=== PATIENT | female | born 2000 | race African-American/Black ===

== ENCOUNTER 2021-08-17 04:50 | Emergency (ER) | payer OTHER ==
[~2021-08-17] VITALS: Ht 165.1 cm; Wt 81.8 kg
[2021-08-17] MEDS ORDERED: SING10TA32 PO (05:00)
[2021-08-17] MEDS ORDERED: ZOLO100T PO (05:00)
[2021-08-17] MEDS ORDERED: CETI-36 PO (05:00)
[2021-08-17] MEDS ORDERED: ALBU8.5H INH (05:00)
[2021-08-17] MEDS ORDERED: ALBUTEROL SULFATE 2.5 MG/0.5 ML INH NEB SOLN NEB ONE (05:10)
[2021-08-17 06:15] LABS: BASO # 0.1 10^3/uL (0.0-0.2); BASO % 0.9 % (0.0-1.0); EOS # 1.1 10^3/uL (0.0-0.5); EOS % 9.5 % (0.0-3.0); HEMATOCRIT 42.2 % (36.0-47.0); HEMOGLOBIN 14.4 g/dl (12.0-15.5); LYMPH # 2.3 10^3/uL (1.5-5.0); LYMPH % 20.3 % (24.0-44.0); MEAN CORPUSCULAR HEMOGLOBIN 31.6 pg (27.0-33.0); MEAN CORPUSCULAR HGB CONC 34.1 g/dl (32.0-36.5); MEAN CORPUSCULAR VOLUME 92.7 fl (80.0-96.0); MONO # 0.9 10^3/uL (0.0-0.8); MONO % 7.7 % (2.0-8.0); NEUTROPHILS # 6.9 10^3/uL (1.5-8.5); NEUTROPHILS % 61.3 % (36.0-66.0); PLATELET COUNT, AUTOMATED 291 10^3/uL (150-450); RED BLOOD COUNT 4.55 10^6/uL (4.00-5.40); WHITE BLOOD COUNT 11.3 10^3/uL (4.0-10.0)
--- NOTE | 2021-08-17 07:02 | REPVR ---
PROCEDURE INFORMATION: Exam: XR Chest Exam date and time: 08/17/2021 6:22 AM Age: 20 years old Clinical indication: Other: Cough with productive sputum, ? pneumonia TECHNIQUE: Imaging protocol: XR of the chest. Views: 1 view. COMPARISON: No relevant prior studies available. FINDINGS: Lungs: Unremarkable. No consolidation. Pleural spaces: Unremarkable. No pleural effusion. No pneumothorax. Heart/Mediastinum: Unremarkable. No cardiomegaly. Bones/joints: Unremarkable. IMPRESSION: No acute findings. Electronically signed by: Osorio Hernandez On 08/17/2021 07:01:09 AM
[2021-08-17] MEDS ORDERED: ALBUTEROL 90 MCG/ACT 8GM HFA INHALER INH ONE (07:15)
--- OUTSIDE RECORDS SUMMARY | 2021-08-17 07:30 | CCD ---
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 Name Role Phone Sonia MCDOWELL MD Unavailable Unavailable Sonia MCDOWELL MD Unavailable Unavailable Sonia MCDOWELL MD Unavailable Unavailable Sonia MCDOWELL MD Unavailable Unavailable Sonia MCDOWELL MD Unavailable Unavailable Sonia MCDOWELL MD Unavailable Unavailable Sonia MCDOWELL MD Unavailable Unavailable Sonia MCDOWELL MD Unavailable Unavailable Sonia MCDOWELL MD Unavailable Unavailable Sonia MCDOWELL MD Unavailable Unavailable Sonia MCDOWELL MD Unavailable Unavailable Sonia MCDOWELL MD Unavailable Unavailable Sonia MCDOWELL MD Unavailable Unavailable Sonia MCDOWELL MD Unavailable Unavailable Sonia MCDOWELL MD Unavailable Unavailable Sonia MCDOWELL MD Unavailable Unavailable Sonia MCDOWELL MD Unavailable Unavailable Sonia MCDOWELL MD Unavailable Unavailable Sonia MCDOWELL MD Unavailable Unavailable Sonia MCDOWELL MD Unavailable Unavailable Sonia MCDOWELL MD Unavailable Unavailable Sonia MCDOWELL MD Unavailable Unavailable Sonia MCDOWELL MD Unavailable Unavailable Sonia MCDOWELL MD Unavailable Unavailable Ish Carbajal MD Unavailable Unavailable Ish Carbajal MD Unavailable Unavailable Ish Carbajal MD Unavailable Unavailable Ish Carbajal MD Unavailable Unavailable Ish Carbajal MD Unavailable Unavailable Ish Carbajal MD Unavailable Unavailable TURRIN, JORDAN Unavailable Unavailable TURRIN, JORDAN Unavailable Unavailable TURRIN, JORDAN Unavailable Unavailable TURRIN, JORDAN Unavailable Unavailable Thacker, L Verona SCRAPER TENDER Unavailable Unavailable Thacker, L Verona SCRAPER TENDER Unavailable Unavailable Thacker, L Verona SCRAPER TENDER Unavailable Unavailable Thacker, L Verona SCRAPER TENDER Unavailable Unavailable Thacker, L Verona SCRAPER TENDER Unavailable Unavailable Thacker, L Verona SCRAPER TENDER Unavailable Unavailable Thacker, L Verona SCRAPER TENDER Unavailable Unavailable Thacker, L Verona SCRAPER TENDER Unavailable Unavailable Thacker, L Verona SCRAPER TENDER Unavailable Unavailable Thacker, L Verona SCRAPER TENDER Unavailable Unavailable Thacker, L Verona SCRAPER TENDER Unavailable Unavailable Thacker, L Verona SCRAPER TENDER Unavailable Unavailable Thacker, L Verona SCRAPER TENDER Unavailable Unavailable Thacker, L Verona SCRAPER TENDER Unavailable Unavailable Thacker, L Verona SCRAPER TENDER Unavailable Unavailable Thacker, L Verona SCRAPER TENDER Unavailable Unavailable Thacker, L Verona SCRAPER TENDER Unavailable Unavailable Thacker, L Verona SCRAPER TENDER Unavailable Unavailable Thacker, L Verona SCRAPER TENDER Unavailable Unavailable Thacker, L Verona SCRAPER TENDER Unavailable Unavailable Thacker, L Verona SCRAPER TENDER Unavailable Unavailable Thacker, L Verona SCRAPER TENDER Unavailable Unavailable Thacker, L Verona SCRAPER TENDER Unavailable Unavailable Thacker, L Verona SCRAPER TENDER Unavailable Unavailable Thacker, L Verona SCRAPER TENDER Unavailable Unavailable Thacker, L Verona SCRAPER TENDER Unavailable Unavailable Thacker, L Verona SCRAPER TENDER Unavailable Unavailable Thacker, L Verona SCRAPER TENDER Unavailable Unavailable Thacker, L Verona SCRAPER TENDER Unavailable Unavailable Thacker, L Verona SCRAPER TENDER Unavailable Unavailable Thacker, L Verona SCRAPER TENDER Unavailable Unavailable Thacker, L Verona SCRAPER TENDER Unavailable Unavailable Thacker, L Verona SCRAPER TENDER Unavailable Unavailable Thacker, L Verona SCRAPER TENDER Unavailable Unavailable Thacker, L Verona SCRAPER TENDER Unavailable Unavailable Thacker, L Verona SCRAPER TENDER Unavailable Unavailable Thacker, L Verona SCRAPER TENDER Unavailable Unavailable Thacker, L Verona SCRAPER TENDER Unavailable Unavailable Thacker, L Verona SCRAPER TENDER Unavailable Unavailable Thacker, L Verona SCRAPER TENDER Unavailable Unavailable Thacker, L Verona SCRAPER TENDER Unavailable Unavailable Thacker, L Verona SCRAPER TENDER Unavailable Unavailable Thacker, L Verona SCRAPER TENDER Unavailable Unavailable Thacker, L Verona SCRAPER TENDER Unavailable Unavailable Thacker, L Verona SCRAPER TENDER Unavailable Unavailable Re-disclosure Warning The records that you are about to access may contain information from federally-assisted alcohol or drug abuse programs. If such information is present, then the following federally mandated warning applies: This information has been disclosed to you from records protected by federal confidentiality rules (42 CFR part 2). The federal rules prohibit you from making any further disclosure of this information unless further disclosure is expressly permitted by the written consent of the person to whom it pertains or as otherwise permitted by 42 CFR part 2. A general authorization for the release of medical or other information is NOT sufficient for this purpose. The Federal rules restrict any use of the information to criminally investigate or prosecute any alcohol or drug abuse patient.The records that you are about to access may contain highly sensitive health information, the redisclosure of which is protected by Article 27-F of the [facility] Public Health law. If you continue you may have access to information: Regarding HIV / AIDS; Provided by facilities licensed or operated by the [facility] Office of Mental Health; or Provided by the [facility] Office for People With Developmental Disabilities. If such information is present, then the following [facility] mandated warning applies: This information has been disclosed to you from confidential records which are protected by state law. State law prohibits you from making any further disclosure of this information without the specific written consent of the person to whom it pertains, or as otherwise permitted by law. Any unauthorized further disclosure in violation of state law may result in a fine or detention sentence or both. A general authorization for the release of medical or other information is NOT sufficient authorization for further disc losure. Encounters Encounter Providers Location Date Indications Data Source(s ) Outpatient Attender: MIKEL MCDOWELL MD 08/03 08:55:14 AM EST - 08/03/2021 10:20:26 AM EST [facility] ([facility] ) Emergency Attender: Ish Carbajal MDConsultant: Verona Thacker [facility] 07/07/2021 08:07:00 AM EDT - 07/07/2021 09:03:00 AM EDT [facility] Patient discharged. Outpatient Attender: MIKEL MCDOWELL MD 03/21 09:35:13 AM EDT - 03/21/2021 10:01:17 AM EDT [facility] ([facility] ) Outpatient 03/20/2021 02:00:29 PM EDT [facility] ([facility]) Emergency Attender: JORDAN HOUSEConsultant: Verona lindsay [facility] 12/04/2020 11:46:00 AM EST - 12/04/2020 01:26:00 PM [facility] Patient discharged. Immunizations Vaccine Date Status Description Data Source(s) COVID-19 VACCINE Moderna 07/27/2021 12:00:00 AM EDT completed [facility] Vaccine Series Complete: YESThis Data wa s Submitted to [facility] Via [facility]. COVID-19 VACCINE Moderna 06/29/2021 12:00:00 AM EDT completed [facility] Vaccine Series Complete: NOThis Data was Submitted to [facility] Via [facility]. Medications No Information Insurance Providers Payer name Policy type / Coverage type Policy ID Covered constitution party ID Covered constitution party's relationship to garcía Policy García Plan Information / [id number] Spouse 01 [id number] IRA [facility] HUMANA [id number] [facility] HUMANA - O/P [id number] 01 000 IRA [facility] HUMANA - O/P [id number] 01 [id number] Problems, Conditions, and Diagnoses Code Display Name Description Problem Type Effective Dates Data Source(s) Y9[address] or not applicable Unspecified place or not applicable Diagnosis 07/07/2021 08:07:00 AM EDT [facility] [id number] Exposure to other specified factors, ini tial encounter Exposure to other specified factors, initial encounter Diagnosis 07/07/2021 08:07:00 AM EDT [facility] [id number] Unspecified asthma, uncomplicated Unspecified as thma, uncomplicated Diagnosis 07/07/2021 08:07:00 AM EDT [facility] 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 R202 Paresthesia of skin Paresthesia of skin Diagnosis 0 12/04/2020 11:46:00 AM EST [facility] Surgeries/Procedures No Information Results ID Date Data Source [id number] 08/03/2021 09:00:00 AM EST [facility] Name Value Range Interpretation Code Description Data Vangie rce(s) Supporting Document(s) SARS-CoV-2 RNA Resp Ql JOAQUÍN+probe NOT DETECTED [facility] This lab was ordered by JOHNNY campos and reported by JOHNNY Raygoza. ID Date Data Source [id number] 07/07/2021 08:07:00 AM EDT [facility] 1 OrderSheet [facility] Emergency Department [address] [place] [address] Phone #: [phone]- [phone] 07/07/2021 07:18 Patient: MARGARET MOONEY Sex: F : 2000 Age: 20yWEIGHT:81.6 kg (S) HEIGHT:65 inches (S) BMI:30.0ALLERGIES: NoneCHIEF COMPLAINT: neck painDIAGNOSIS: Torticollis, Muscle strainLAB ORDERSOrder Description Priority Entered Acknowledged InitialedDIAGNOSTIC STUDY ORDERSOrder Description Priority Entered Acknowledged InitialedMEDICATION/IV/DRIP/FLUID ORDERSOrder Description Priority Entered Acknowledged InitialedValium PO 5 mg 08:08 07/07/2021 08:40 Solomon Hung Jack ; Joanna BOLIVARGENERAL ORDERSOrder Description Priority Entered Acknowledged Initialed[Electronically signed by Ish Carbajal (09:27 07/07/2021)][Electronically signed by Joanna Hung RN (12:13 07/07/2021)][Electronically locked by Joanna Hung RN (12:13 07/07/2021)] Name Value Range Interpretation Code Description Data Vangie rce(s) Supporting Document(s) ID Date Data Source [id number] 07/07/2021 08:07:00 AM EDT [facility] 1 Medication Reconciliation Report [facility] Emergency Department [address] [place] [address] Phone #: [phone] 07/07/2021 07:18 Patient: MARGARET MOONEY Sex: F : 2000 Age: 20yWeight: 81.6 kgHeight/Length: 65 in.BMI: 30.0ALLERGIES: NoneThe patient's Home Medications are listed below:CONTINUE TAKING THE FOLLOWING MEDICATIONS: Albuterol Sulfate HFA Inhalation Singulair OralThe source(s) of the original Home Medication information:patientThe following Medications were given to the patient in the Emergency Department:Valium [PO] PO 5 mg, administered: 08:35 07/07/2021The following Medications were prescribed to the patient:Flexeril 10 mg: take 1 orally every 8 hours for 3 days as needed for muscle spasm. Dispense ten (10). Norefills. -- Ish Carbajal Name Value Range Interpretation Code Description Data Vangie e(s) Supporting Document(s) ID Date Data Source [id number] 07/07/2021 08:07:00 AM EDT [facility] 1 Medication Administration Record [facility] [address] [place] [address] Phone #: ext- [phone] 07/07/2021 07:18 Patient: MARGARET MOONEY Sex: F : 2000 Age: 20yWeight: 81.6 kgHeight/Length: 65 inBMI: 30ALLERGIES: None Date/Time Medication Administered Medication OrderedGiven VALIUM [PO] (DIAZEPAM) Valium PO 5 mg08:35 07/07/2021 Dose: 5 mg Joanna Rachel RN Name Value Range Interpretation Code Description Data Vangie rce(s) Supporting Document(s) ID Date Data Source [id number] 07/07/2021 08:07:00 AM EDT [facility] 1 General Instructions [facility] Department [address] [place] [address] Phone #: ext- [phone] 07/07/2021 07:18 Patient: MARGARET MOONEY Sex: F : 2000 Age: 20yMuscle strain of the left trapezius at the shoulder.Left-sided spasmodic torticollisINSTRUCTIONSWarnings: SEDATIVE MEDICATION: You were given sedative medication during your visit. Do not driveor operate dangerous machinery.GENERAL WARNINGS: Return or contact your physician immediately if your condition worsens orchanges unexpectedly, if not improving as expected, or if other problems arise.Your Current Medications: Your current home medications have been reviewed.CONTINUE TAKING THE FOLLOWING MEDICATIONS:Albuterol Sulfate HFA Inhalation.Singulair Oral.Prescription Medications:Flexeril 10 mg: take 1 orally every 8 hours for 3 days as needed for muscle spasm. Dispense ten (10). Norefills.Understanding of the discharge instructions verbalized by patient.Follow-up with: [facility] [place], , , [address], , [place], [address] Follow up in three days if not better. Call for an appointment. ADDITIONAL INFORMATIONNeck Pain 2 General Instructions [facility] Emergency Department [address] [place] [address] Phone #: ext- [phone] 07/07/2021 07:18 Patient: MARGARET MOONEY Sex: F : 2000 Age: 20yNeck pain has several possible causes when there is no injury: You can get a minor ligament sprain or muscle strain from a sudden minor neck movement. Sleeping with your neck in an awkward position can also cause this. Some people respond to emotional stress by tensing the muscles of their neck, shoulders, and upper back. Chronic spasm in these muscles can cause neck pain and sometimes headaches. Gradual wear and tear of the joints in the spine can cause degenerative arthritis. This can be a source of occasional or chronic neck pain. The spinal disks may bulge and put pressure on a nearby spinal nerve. This can happen as a natural result of aging or repeated small injuries to the neck. The spinal disks are the cushions between each spinal bone. This causes tingling, pain, or numbness that spreads from the neck to the shoulder, arm, or hand on one side.Acute neck pain usually gets better in 1 to 2 weeks. Neck pain related to disk disease, arthritis in thespinal joints, or spinal stenosis can become chronic and last for months or years. Spinal stenosis isnarrowing of the spinal canal.X-rays are usually not ordered for the initial evaluation of neck pain. But X-rays may be done if youhad a forceful physical injury, such as a car accident or fall. If pain continues and doesn't respond tomedical treatment, X-rays and other tests may be done at a later time.Home care Rest and relax the muscles. Use a comfortable pillow that supports the head. It should also help keep the spine in a neutral position. The position of the head should not be tilted forward or backward. A rolled up towel may help for a custom fit. 3 General Instructions [facility] Emergency Department [address] [place] [address] Phone #: ext- [phone] 07/07/2021 07:18 [id number] Sex[facility] : 2000 Age: 20y A soft cervical collar can help pain, especially pain with head movement. Your doctor can tell you if this is appropriate for your condition. Some people find relief with heat. Heat can be applied with either a warm shower or bath or a moist towel heated in the microwave and massage. Others prefer cold packs. You can make an ice pack by filling a plastic bag that seals at the top with ice cubes or crushed ice and then wrapping it with a thin towel. Try both and use the method that feels best for 15 to 20 minutes, several times a day. Whether using ice or heat, be careful that you don't injure your skin. Never put ice directly on the skin. Always wrap the ice in a towel or other type of cloth. This is very important, especially in people with poor skin sensations. Try to reduce your stress level. Emotional stress can lead to neck muscle tension and get in the way of or delay the healing process. You may use uqgm-hii-mgxqufh pain medicine to control pain, unless another medicine was prescribed. If you have chronic liver or kidney disease or ever had a stomach ulcer or digestive bleeding, talk with your healthcare provider before using these medicines.Follow-up careFollow up with your healthcare provider if your symptoms don't show signs of improvement after oneweek. Physical therapy or further tests may be needed.If X-rays, CT scans, or MRI scans were taken, you will be told of any new findings that may affectyour care.Call [phone] if you have: Sudden weakness or numbness in one or both arms Neck swelling, difficulty or painful swallowing Trouble breathing Chest painWhen to seek medical adviceCall your healthcare provider right away if any of these occur: Pain becomes worse or spreads into one or both arm Increasing headache 4 General Instructions [facility] Department [address] [place] [address] Phone #: ext- [phone] 07/07/2021 07:18 Patient: MARGARET MOONEY Sex: F : 2000 Age: 20y Fever of 100.4F (38C) or higher, or as directed by your healthcare provider [employer] [address] [place] [address]. All rights reserved. This information is not intended as asubstitute for professional medical care. Always follow your healthcare professional's instructions.Muscle Strain in the ExtremitiesA muscle strain is a stretching and tearing of muscle fibers. This causes pain, especially when youmove that muscle. There may also be some swelling and bruising.Home care Keep the hurt area raised above heart level to reduce pain and swelling. This is especially important during the first 48 hours. Apply an ice pack over the injured area for 15 to 20 minutes every 3 to 6 hours. You should do this for the first 24 to 48 hours. You can make an ice pack by filling a plastic bag that seals at the top with ice cubes and the n wrapping it with a thin towel. Be careful not to injure your skin with the ice treatments. Ice should never be applied directly to skin. Continue the use of ice packs for relief of pain and swelling as needed. After 48 hours, apply heat (warm shower or warm bath) for 15 to 20 minutes several times a day, or alternate ice and heat. You may use kdff-gxb-smnxohl pain medicine to control pain, unless another medicine was prescribed. If you have chronic liver or kidney disease or ever had a stomach ulcer or gastrointestinal bleeding, talk with your healthcare provider before using these medicines. For leg strains: If crutches have been recommended, don't put full weight on the hurt leg until you can do so without pain. You can return to sports when you are able to hop and run on the injured leg without pain.Follow-up careFollow up with your healthcare provider, or as advised.When to seek medical adviceCall your healthcare provider right away if any of these occur: The toes of the injured leg become swollen, cold, blue, numb, or tingly Pain or swelling increases [phone] [employer] [address] [place], [place] [id number]. All rights reserved. This information is not intended as asubstitute for professional medical care. Always follow your healthcare professional's instructions. 5 General Instructions [facility] Department [address] [place] [address] Phone #: ext- [phone] 07/07/2021 07:18 Patient: MARGARET MOONEY Sex: F : 2000 Age: 20yCyclobenzaprine tabletsWhat is this medicine?CYCLOBENZAPRINE (katarina jacobo) is a muscle relaxer. It is used to treat muscle pain,spasms, and stiffness.How should I use this medicine?Take this medicine by mouth with a glass of water. Follow the directions on the prescription label. Ifthis medicine upsets your stomach, take it with food or milk. Take your medicine at regular intervals.Do not take it more often than directed.Talk to your inserter operator regarding the use of this medicine in children. Special care may be needed.What side effects may I notice from receiving this medicine?Side effects that you should report to your doctor or health adult daycare coordinator as soon as possible: allergic reactions like skin rash, itching or hives, swelling of the face, lips, or tongue breathing problems chest pain fast, irregular heartbeat hallucinations seizures unusually weak or tiredSide effects that usually do not require medical attention (report to your doctor or health careprofessional if they continue or are bothersome): headache nausea, vomitingWhat may interact with this medicine?Do not take this medicine with any of the following medications: MAOIs like Carbex, Eldepryl, Marplan, Nardil, and Parnate narcotic medicines for cough 6 General Instructions [facility] Department [address] [place] [address] Phone #: ext- [phone] 07/07/2021 07:18 Patient: MARGARET MOONEY Sex: F : 2000 Age: 20y safinamideThis medicine may also interact with the following medications: alcohol bupropion antihistamines for allergy, cough and cold certain medicines for anxiety or sleep certain medicines for bladder problems like oxybutynin, tolterodine certain medicines for depression like amitriptyline, fluoxetine, sertraline certain medicines for Parkinson's disease like benztropine, trihexyphenidyl certain medicines for seizures like phenobarbital, primidone certain medicines for stomach problems like dicyclomine, hyoscyamine certain medicines for travel sickness like scopolamine general anesthetics like halothane, isoflurane, methoxyflurane, propofol ipratropium local anesthetics like lidocaine, pramoxine, tetracaine medicines that relax muscles for surgery narcotic medicines for pain phenothiazines like chlorpromazine, mesoridazine, prochlorperazine, thioridazine verapamilWhat if I miss a dose?If you miss a dose, take it as soon as you can. If it is almost time for your next dose, take only thatdose. Do not take double or extra doses.Where should I keep my medicine?Keep out of the reach of children.Store at room temperature between 15 and 30 degrees C (59 and 86 degrees F). Keep containertightly closed. Throw away any unused medicine after the expiration date. 7 General Instructions [facility] Department [address] [place] [address] Phone #: ext- [phone] 07/07/2021 07:18 Patient: MARGARET MOONEY Sex: F : 2000 Age: 20yWhat should I tell my health care provider before I take this medicine?They need to know if you have any of these conditions: heart disease, irregular heartbeat, or previous heart attack liver disease thyroid problem an unusual or allergic reaction to cyclobenzaprine, tricyclic antidepressants, lactose, other medicines, foods, dyes, or preservatives or trying to get breast-feedingWhat should I watch for while using this medicine?Tell your doctor or health adult daycare coordinator if your symptoms do not start to get better or if they getworse.You may get drowsy or dizzy. Do not drive, use machinery, or do anything that needs mentalalertness until you know how this medicine affects you. Do not stand or sit up quickly, especially ifyou are an older patient. This reduces the risk of dizzy or fainting spells. Alcohol may interfere withthe effect of this medicine. Avoid alcoholic drinks.If you are taking another medicine that also causes drowsiness, you may have more side effects.Give your health care provider a list of all medicines you use. Your doctor will tell you how muchmedicine to take. Do not take more medicine than directed. Call emergency for help if you haveproblems breathing or unusual sleepiness.Your mouth may get dry. Chewing sugarless gum or sucking hard candy, and drinking plenty of watermay help. Contact your doctor if the problem does not go away or is severe.NOTE:This sheet is a summary. It may not cover all possible information. If you have questions about this medicine, talk to your doctor, pharmacist, orhealth care provider. Copyright 2020 [employer] You have been given the following additional information: Neck Pain Muscle Strain, Extremity Cyclobenzaprine tablets 8 General Instructions [facility] Department [address] [place] [address] Phone #: ext- [phone] 07/07/2021 07:18 Patient: MARGARET MOONEY Sex: F : 2000 Age: 20y(Electronically signed by Ish Carbajal 07/07/2021 09:27) Name Value Range Interpretation Code Description Data Vangie rce(s) Supporting Document(s) ID Date Data Source [id number] 07/07/2021 08:07:00 AM EDT [facility] 1 Clinical Report - Nurses [facility] [address] [place] [address] Phone #: ext- [phone] 07/07/2021 07:18 Patient: MARGARET MOONEY Sex: F : 2000 Age: 20yTRIAGEArrived by private vehicle. Historian: patient. Accompanied by family. ( presents with with c/osudden onset of L neck pain radiating into shoulder that started yesterday afternoon,).Triage time: 07:40 07/07/2021. Acuity: LEVEL 4.Chief Complaint: NECK PAIN and (into L shoulder).Alert. No acute distress.This started yesterday. No history of recent trauma.Treatment BANKRUPTCY LAW SPECIALIST:Applied ice and heat. Took Tylenol and ibuprofen. (biofreeze).SEPSIS SCREEN: SIRS SCREEN NEGATIVE. SEPSIS SCREEN NEGATIVE. No suspected or confirmedsigns of infection present. --07:47 07/07/21 Joanna Hung RN07:40 07/07/21. BP: 146/88. MAP: 107. HR: 122. RR: 19. O2 saturation: 96%. Temp: 100 F. Pain levelnow: 06/06. --07:47 07/07/21 Joanna Hung RN( she got her first covid shot a week ago.). --07:49 07/07/21 Jaonna Hung RN.Weight: 81.6 kg stated. Height/Length: 65 inches Per Patient. BMI: 30. --07:41 07/07/21 Joanna Hung RN.MedicationsAlbuterol Sulfate HFA Inhalation. --07:43 07/07/21 Joanna Hung RN Singulair Oral. --07:43 07/07/21 Joanna Hung RN.AllergiesNone. --07:43 07/07/21 Joanna Hung RN.PROBLEMS:Asthma. --07:43 07/07/21 Joanna Hung RN.Medication/allergy information source: the patient and patient's previous visit record. --07:47 07/07/21Joanna Hung RN.ADDITIONAL SURGERIES:no known surgeries. 2 Clinical Report - Nurses [facility] Department [address] [place] [address] Phone #: ext- [phone] 07/07/2021 07:18 Patient: MARGARET MOONEY Sex: F : 2000 Age: 20y History PAST MEDICAL HX: Uses an intrauterine device. SOCIAL HX: Never smoker. Occasional alcohol use. No drug use. The patient was offered HIV testing but declined and hepatitis C testing but declined. The patient has not traveled outside the [place] Infectious disease exposure: No infectious disease exposure. SELF HARM ASSESSMENT: Self harm assessment was performed. The patient answered "no" to the question(s) "Have you recently felt down, depressed, or hopeless?". ABUSE ASSESSMENT: No report of abuse. NUTRITIONAL RISK ASSESSMENT: The nutritional risk assessment revealed no deficiencies. FUNCTIONAL ASSESSMENT: Functional assessment: no impairments noted. LEARNING NEEDS ASSESSMENT: The learning needs assessment revealed no barriers. FALL RISK ASSESSMENT: Fall risk assessment completed. No risk factors identified. SKIN INTEGRITY ASSESSMENT: Skin integrity risk assessment completed. No skin integrity risk identified. --07:47 07/07/21 Joanna Hung RN. FAMILY HX: No significant family medical history. --08:11 07/07/21 Ish Carbajal.PHYSICAL ASSESSMENTAmbulatory to room.GENERAL / NEURO / PSYCH: Alert. Oriented X 4. Appears in no acute distress.RESPIRATORY: Respirations not labored. Breath sounds within normal limits.CVS: Capillary refill less than 2 seconds.EXTREMITIES: Limited ROM present in the left shoulder and left upper arm. Sensation intact inextremities.BACK: Limited ROM of the neck. No vertebral point tenderness or soft tissue tenderness. --07: Joanna Hung RN.NURSING PROGRESS NOTESReassurance given. Two patient identifiers checked. Bed placed in lowest position. Brakes of bed on.Patient ready for evaluation. --07:47 07/07/21 Joanna Hung RN 08:35 07/07/2021 Valium (diazePAM) PO 5 mg given. Allergies verified and confirmed 5 rights. Information reviewed with patient including reason for taking this medication and sedative warning. Verbalizes understanding. --08:40 07/07/21 Joanna Hung RN.DISPOSITION / DISCHARGE Departure time: 09:03 07/07/2021. --09:55 07/07/21 Joanna Hung RN 3 Clinical Report - Nurses [facility] [address] [place] [address] Phone #: ext- [phone] 07/07/2021 07:18 Patient: MARGARET MOONEY Sex: F : 2000 Age: 20y Condition at departure: stable. No learning barriers present. Discharge instructions provided and reviewed with the patient. Reviewed medication(s) side effects, precautions, dosing and course information. Prescription(s) sent electronically to pharmacy. Reviewed referral to a primary care physician. Patient verbalized understanding. Written instructions provided in Congolese. The patient was discharged by the physician. She was discharged home and accompanied by spouse. She left ambulatory and via private vehicle. Spouse driving. --12:12 07/07/21 Joanna Hung RN 09:00 07/07/21. Pain level now: 05/06. --12:12 07/07/21 Joanna Hung RN.Locked/Released at 07/07/2021 12:13 by Joanna Hung RN Name Value Range Interpretation Code Description Data Vangie rce(s) Supporting Document(s) ID Date Data Source [id number] 07/07/2021 08:07:00 AM EDT [facility] 1 Clinical Report - Physicians/Mid Levels [facility] [address] [place] [address] Phone #: ext- [phone] 07/07/2021 07:18 Patient: MARGARET MOONEY Sex: F : 2000 Age: 20y Time Seen: 07:58 07/07/2021. Arrived- By private vehicle. Historian- patient.HISTORY OF PRESENT ILLNESS Chief Complaint: NECK PAIN shoulder pain. Onset was yesterday and it is still present. It was gradual in onset and has been constant. It is described as being moderate in degree and in the area of the left trapezius and left side of the cervical spine and radiating to the left shoulder. The quality is noted to be sharp and aching. Modifying factors- worsened by neck flexion. No bladder dysfunction, bowel dysfunction, sensory loss or motor loss. Additional history - Started with left sided neck pain and trapezius. Hurts to move and the pain is getting worse. No known injury or repetitive use. Right handed. She is worried about blood clot or pinched nerve. No relief with ibuprofen 800 mg. No painful swallowing or headache. Iona ent denies an injury. No other injury. Similar symptoms previously. None. Recent medical care: Not recently seen/assessed.REVIEW OF SYSTEMSDenies current . No fever, chills, cough or difficulty breathing. No chest pain or pain, skin rash,abdominal pain or difficulty with urination. No urinary frequency, fatigue, fever, difficulty breathing or backpain. No numbness, weakness, extremity swelling or anxiety. The patient has had neck pain. All othersystems reviewed and are negative.PAST HISTORYSee nurses notes. Has not had a prior back injury. Has not had prior back pain. Problems: Asthma. Surgeries: No history of previous surgery. Additional Surgeries: no known surgeries. Medications: Singulair Oral. Albuterol Sulfate HFA Inhalation. Allergies: None. 2 Clinical Report - Physicians/Mid Levels [facility] Department [address] [place] [address] Phone #: ext- [phone] 07/07/2021 07:18 [id number] Sex: F : 2000 Age: 20ySOCIAL HISTORYNever smoker. No alcohol use.FAMILY HISTORYNo significant family medical history.ADDITIONAL NOTESThe nursing notes have been reviewed.PHYSICAL EXAMVital Signs: 07/07/2021 07:40 BP: 146/88. MAP: 107. HR: 122. RR: 19. O2 saturation: 96%. Temp: 100 F.Pain level now: 06/06.Appearance: Alert. No acute distress.HEENT: Normal external inspection.ENT: Pharynx normal.Neck: Pain in the neck upon movement. Muscle spasm of the neck. No vertebral tenderness. No softtissue tenderness, lymphadenopathy or meningeal signs. (pain with lateral rotation of neck).CVS: Normal heart rhythm. Heart sounds normal. Pulses normal.Respiratory: No respiratory distress. Expiratory mild bilateral wheezes present. Chest nontender. Nodecreased air movement.Abdomen: Normal inspection.Back: Normal inspection. No tenderness. Painless ROM.Skin: Skin warm. Normal skin color. Normal skin turgor.Extremities: No lower extremity edema. (Some pain with palpation over left trapezius. No tense swellingto left arm.. Clavicle is nontender).Neuro: Oriented X 3. Mood/affect normal. No motor deficit. No sensory deficit. Reflex exam: lefttriceps 2+, right biceps 2+ and left biceps 2+. (good director digital advertising strength.).PROGRESS AND PROCEDURESCourse of Care: 08:14 07/07/21. Torticollis or musculoskeletal pain. No palpable masses or neurologicaldeficits. Unlikely to be DVT or cervical radiculopathy. Not a smoker or taking oral BCP's. No signs ofswelling. Unlikely to be radicular pain given that the pain only involves the trapezius and lateral deltoid. Patient/family counseled. Disposition: Discharged. Condition: stable.CLINICAL IMPRESSION Muscle strain of the left trapezius at the shoulder. Left-sided spasmodic torticollis 3 Clinical Report - Physicians/Mid [place] [facility] [address] [place] [address] Phone #: [phone]- [phone] 07/07/2021 07:18 Patient: MARGARET MOONEY Sex: F : 2000 Age: 20yINSTRUCTIONS Warnings: SEDATIVE MEDICATION: You were given sedative medication during your visit. Do not drive or operate dangerous machinery. GENERAL WARNINGS: Return or contact your physician immediately if your condition worsens or changes unexpectedly, if not improving as expected, or if other problems arise. Your Current Medications: Your current home medications have been reviewed. CONTINUE TAKING THE FOLLOWING MEDICATIONS: Albuterol Sulfate HFA Inhalation. Singulair Oral. Prescription Medications: Flexeril 10 mg: take 1 orally every 8 hours for 3 days as needed for muscle spasm. Dispense ten (10). No refills. Understanding of the discharge instructions verbalized by patient. [facility] Respective Team [place], , , [address] [facility], , [place], [address] Follow up in three days if not better. Call for an appointment.(Electronically signed by Ish Carbajal 07/07/2021 09:27) Name Value Range Interpretation Code Description Data Vangie rce(s) Supporting Document(s) ID Date Data Source [id number] 12/05/2020 10:41:00 [place] [address] PHONE: [phone] FAX: [phone] Name .................. : JESICA Dumont Acct Number.................. : [id number] ROOM. ................. : TR-03 MR Number ................... : [id number] Stay type ............. : E/R Discharge Date......... ... : 12/04/20 Admit Date ......... : 12/04/20 Admit Phys .................... : HARSH MEDEIROS Date of ....... : 2000 Family Phys ................... : THACKER M Phone .................. : [phone] Age ................................ : 20 Film# .................. .:[id number] Sex ................................. : F Unsigned transcriptions are preliminary reports and do not represent a medical or legal document SPINE LS AP & LAT [id number] COMPLETE:12/04/20 12:35 CHERYL [id number] Reason(s): Lower Extremity Tingling LUMBAR SPINE X-RAY: COMPARISON: None available. FINDINGS: There is no acute fracture, spondylolisthesis or degenerative change. Incomplete disc space at S1-S2. The upper spine is angled to the right. A metallic foreign body is noted in the region of the umbilicus. IMPRESSION: No acute fracture, spondylolisthesis or significant degenerative change. Electronically Reviewed and Signed By Gregorio Vázquez MD , 12/05/20 10:41, AML Transcribe Initials: ROSALINA , Transcribe Date: 12/05/20 02:49, Dictation Date: Copy for: 710 MED REC D ISCHARGED Page 1 of 1 Name Value Range Interpretation Code Description Data Vangie rce(s) Supporting Document(s) ID Date Data Source [id number] 12/04/2020 11:46:00 AM EST [facility] 1 OrderSheet [facility] [address] [place] [address] Phone #: ext- [phone] 12/04/2020 11:35 Patient: MARGARET MOONEY Sex: F : 2000 Age: 20yWEIGHT:74.8 kg (S) HEIGHT:65 inches (S) BMI:27.5ALLERGIES: No Known Drug AllergyCHIEF COMPLAINT: paresthesiaDIAGNOSIS: Paresthesia, Normal ExamLAB ORDERSOrder Description Priority Entered Acknowledged InitialedCBC w Diff STAT 11:56 12/04/2020 11:57 Harsh Hung Riccardo Lisa RN M.D.;CMP STAT 11:56 12/04/2020 11:57 Harsh Hung Riccardo Lisa RN M.D.;TSH STAT 11:56 12/04/2020 11:57 Harsh Hung Riccardo Lisa RN M.D.;HCG Serum Qual STAT 11:56 12/04/2020 11:57 Harsh Hung Riccardo Lisa RN M.D.;Lyme Disease STAT 12:07 12/04/2020 12:58 AnabellAntibodies Jordan House RN, M.D.;DIAGNOSTIC STUDY ORDERSOrder Description Priority Entered Acknowledged InitialedSpine Lumbar AP STAT 11:57 12/04/2020 11:57 AnabellAnd Jordan Harmon RN(Oxygen?(No)) Tamara; Reason for Study: Lower Extremity TinglingMEDICATION/IV/DRIP/FLUID ORDERSOrder Description Priority Entered Acknowledged InitialedGENERAL ORDERSOrder Description Priority Entered Acknowledged InitialedVitals 11:56 12/04/2020 11:57 Harsh Hung Riccardo Lisa RN M.D.; 2 OrderSheet [facility] Department [address] [place] [address] Phone #: ext- [phone] 12/04/2020 11:35 Patient: MARGARET MOONEY Sex: F : 2000 Age: 20yBlood Pressure 11:56 12/04/2020 11:57 Anabell,Jordan Armando RN, M.D.;[Electro nically signed by Joanna Hung RN (13:30 12/04/2020)][Electronically signed by Jordan House M.D. (14:19 12/04/2020)][Electronically locked by Joanna Hung RN (13:30 12/04/2020)] Name Value Range Interpretation Code Description Data Vangie rce(s) Supporting Document(s) ID Date Data Source [id number] 12/04/2020 11:46:00 AM EST [facility] 1 Medication Reconciliation Report [facility] [address] [place] [address] Phone #: ext- [phone] 12/04/2020 11:35 Patient: MARGARET MOONEY Sex: F : 2000 Age: 20yWeight: 74.8 kgHeight/Length: 65 in.BMI: 27.5ALLERGIES: No Known Drug AllergyThe patient's Home Medications are listed below:STOP TAKING THE FOLLOWING MEDICATIONS: Zoloft Oral 50 mg, dailyCONTINUE TAKING THE FOLLOWING MEDICATIONS: Albuterol Sulfate HFA Inhalation Singulair Oral ZyrTEC Allergy Childrens OralThe source(s) of the original Home Medication information:patientThe following Medications were given to the patient in the Emergency Department:None.The following Medications were prescribed to the patient:None. Name Value Range Interpretation Code Description Data [facility] Supporting Document(s) ID Date Data Source [id number] 12/04/2020 11:46:00 AM [facility] 1 Medication Administration Record [facility] [address] [place] [address] Phone #: ext- [phone] 12/04/2020 11:35 Patient: MARGARET MOONEY Sex: F : 2000 Age: 20yWeight: 74.8 kgHeight/Length: 65 inBMI: 27.5ALLERGIES: No Known Drug AllergyDate/Time Medication Administered Medication Ordered Name Value Range Interpretation Code Description Data [facility] Supporting Document(s) ID Date Data Source [id number] 12/04/2020 11:46:00 AM [facility] 1 General Instructions [facility] Department [address] [place] [address] Phone #: ext- [phone] 12/04/2020 11:35 Patient: MARGARET MOONEY Sex: F : 2000 Age: 20yNormal exam upon presentation, while in the ED and at discharge.Paresthesia (lower legs, intermittent).Rule out Zoloft side effect.INSTRUCTIONS Follow a low salt diet and low cholesterol diet. Do not smoke. No alcohol. (RETURN TO ER IF WORSENING OF SYMPTOMS OR ANY NEW NEUROLOGICAL SYMPTOM; STOP THE ZOLOFT AND FOLLOW UP WITH YOUR FAMILY MD IN NEXT WEEK).Warnings: Further evaluation is necessary. It is very important to follow up with a healthcare provider.GENERAL WARNINGS: Return or contact your physician immediately if your condition worsens orchanges unexpectedly, if not improving as expected, or if other problems arise. Specifically return if pain,vomiting, bleeding, breathing difficulty or fever greater than 102 degrees F and not controlled byacetaminophen or ibuprofen.Your Current Medications: Your current home medications have been reviewed.STOP TAKING THE FOLLOWING MEDICATIONS:Zoloft Oral : 50 mg daily.CONTINUE TAKING THE FOLLOWING MEDICATIONS:Albuterol Sulfate HFA Inhalation.Singulair Oral.ZyrTEC Allergy Childrens Oral.Follow-up:Return to the emergency department as needed. Follow up with your healthcare provider in three dayseven if well. Call for an appointment. Reason for referral: evaluation and treatment. Summary of careprovided to patient via paper.Understanding of the discharge instructions verbalized by patient. Expected course of illness, dischargeinstructions, activity level, diet, follow-up appointment and risks and benefits of treatment reviewed withpatient and understanding verbalized. Agrees to plan of care. ADDITIONAL INFORMATIONParaesthesias 2 General Instructions [facility] Department [address] [place] [address] Phone #: ext- [phone] 12/04/2020 11:35 Patient: MARGARET MOONEY Sex: F : 2000 Age: 20yParaesthesia is a burning or prickling sensation that is sometimes felt in the hands, arms, legs or feet.It can also occur in other parts of the body. It can also feel like tingling or numbness, skin crawling, oritching. The feeling is not comfortable, but it is not painful. (The "pins and needles" feeling thathappens when a foot or hand "falls asleep" is a temporary paraesthesia.)Paraesthesias that last or come and go may be caused by medical issues that need to be treated.These include stroke, a bulging disk pressing on a nerve, a trapped nerve, vitamin deficiencies,uncontrolled diabetes, alcohol abuse, or even certain medicines.Tests are often done. These tests may include blood tests, X-ray, CT (computerized tomography)scan, nerve conduction studies (NCS), or a muscle test (electromyography). Depending on the cause,treatment may include physical therapy.Home care Tell your healthcare provider about all medicines you take. This includes prescription and dnbd-daz-ttltgnj medicines, vitamins, and herbs. Ask if any of the medicines may be causing your problems. Don't make any changes to prescription medicines without talking to your healthcare provider first. You may be prescribed medicines to help relieve the tingling feeling or for pain. Take all medicines as directed. A numb hand or foot may be more prone to injury. To help protect it: o Always use oven mitts. o Test water with an unaffected hand or foot. o Use caution when trimming nails. File sharp areas. o Wear shoes that fit well to avoid pressure points, blisters, and ulcers. o Inspect your hands and feet carefully (including the soles of your feet and between your toes) daily. If you see red areas, sores, or other problems, tell your healthcare provider.Follow-up careFollow up with your doctor, or as advised. You may need further testing or evaluation.When to seek medical adviceCall your healthcare provider right away if any of the following occur: 3 General Instructions [facility] Department [address] [place] [address] Phone #: ext- [phone] 12/04/2020 11:35 Patient: MARGARET MOONEY Sex: F : 2000 Age: 20y Numbness or weakness of the face, one arm, or one leg Slurred speech, confusion, trouble speaking, walking, or seeing Severe headache, fainting spell, dizziness, or seizure Ches t, arm, neck, or upper back pain Loss of bladder or bowel control Open wound with redness, swelling, or pus [employer] [address] [place] [address], [place] [address]. All rights reserved. This information is not intended as asubstitute for professional medical care. Always follow your healthcare professional's instructions. You have been given the following additional information: Paraesthesias(Electronically signed by Jordan House M.D. 12/04/2020 14:19) Name Value Range Interpretation Code Description Data Vangie rce(s) Supporting Document(s) ID Date Data Source [id number] 12/04/2020 11:46:00 AM EST [facility] 1 Clinical Report - Nurses [facility] [address] [place] [address] Phone #: ext- [phone] 12/04/2020 11:35 Patient: MARGARET MOONEY Sex: F : 2000 Age: 20yTRIAGEArrived by private vehicle. Historian: patient. Unaccompanied.Triage time: 11:28 12/04/2020. Acuity: LEVEL 3.Chief Complaint: NUMBNESS.Alert. No acute distress.Onset. (5 days ago). ( Pt went skiing 5 days ago and since has experienced some tinlging and numbnessin bilateral feet. Pt believes it is related to taking her Zoloft, not skiing. Pt fell several times while skiing.).Treatment BANKRUPTCY LAW SPECIALIST:None.SEPSIS SCREEN: SIRS SCREEN NEGATIVE: heart rate greater than 90. SEPSIS SCREEN NEGATIVE.No suspected or confirmed signs of infection present. --11:42 12/04/20 Navya Escalera R.N.11:36 12/04/20. BP: 142/94. MAP: 110. HR: 100. RR: 16. O2 saturation: 99% on room air. Temp: 99.1 F(oral). Pain level now: 05/06. --11:42 12/04/20 Navya Escalera R.N.Weight: 74.8 kg stated. Height/Length: 65 inches Per Patient. BMI: 27.5. --11:38 12/04/20 Navya Escalera R.N.MedicationsZoloft Oral 50 mg, daily. --11:41 12/04/20 Navya Escalera R.N. Albuterol Sulfate HFA Inhalation. --11:41 12/04/20 Navya Escalera R.N. Singulair Oral. --11:41 12/04/20 Navya Escalera R.N. ZyrTEC Allergy Childrens Oral. --11:41 12/04/20 Navya Escalera R.N.AllergiesNo Known Drug Allergy. --11:41 12/04/20 Navya Escalera R.N.PROBLEMS:Anxiety Reaction.Asthma. --11:42 12/04/20 Navya Escalera R.N.Medication/allergy information source: the patient. --11:42 12/04/20 Navya Escalera R.N.ADDITIONAL SURGERIES:no known surgeries. 2 Clinical Report - Nurses [facility] Department [address] [place] [address] Phone #: ext- [phone] 12/04/2020 11:35 Patient: MARGARET MOONEY Sex: F : 2000 Age: 20y History PAST MEDICAL HX: Immunizations: up-to-date. Last normal menstrual period- Nov 12. SOCIAL HX: Never smoker. Occasional alcohol use. No drug use. The patient was offered HIV testing but declined. Patient education was provided. The patient was offered hepatitis C testing but declined. Patient education was provided. The patient has not traveled outside the [place] Infectious disease exposure: No infectious disease exposure. (COVID screen negative). Patient is not a known carrier of tuberculosis, hepatitis, HIV, MRSA or VRE. Patient is not a known carrier of CRE. SELF HARM ASSESSMENT: Self harm assessment was performed. The patient answered "no" to the question(s) "Do you have thoughts of harming or killing yourself?", "Do you have a plan for harming or killing yourself?" and "Have you recently had thoughts about harming or killing others?". ABUSE ASSESSMENT: Abuse assessment. The patient had positive responses to the question(s) "Do you feel safe in your home?" (yes). Abuse denied. No suspicion of abuse. No report of abuse. NUTRITIONAL RISK ASSESSMENT: The nutritional risk assessment revealed no deficiencies. FUNCTIONAL ASSESSMENT: Functional assessment: no impairments noted. LEARNING NEEDS ASSESSMENT: The learning needs assessment revealed no barriers. FALL RISK ASSESSMENT: Fall risk assessment completed; fell during skiing. SKIN INTEGRITY ASSESSMENT: Skin integrity risk assessment completed. No skin integrity risk identified. --11:42 12/04/20 Navya Escalera RMadisonN. Interventions Identification band on patient. --11:42 12/04/20 Navya Escalera R.N.PHYSICAL ASSESSMENTAmbulatory to room.GENERAL / NEURO / PSYCH: Alert. Oriented X 4. Appears in no acute distress.HEENT: Pupils equal, round and reactive to light. No facial asymmetry noted. ( neuro checks WNL).Mucous membranes are pink.RESPIRATORY: Respirations not labored. Chest nontender. Breath sounds within normal limits.CVS: Normal sinus rhythm noted. Cardiac rhythm: sinus tachycardia. Capillary refill less than 2 seconds.Pulses within normal limits.GI / : Abdomen soft and nontender and normal bowel sounds.SKIN: Skin intact. Skin is warm and dry. Normal skin turgor. ( R great toe red and tender, due to skiboots). --11:55 12/04/20 Joanna Hung RN.NURSING PROGRESS NOTESMonitoring of patient in place. Patient gowned. Reassurance given. Three patient identifiers checked.Call light placed in reach. Side rails up x 2. Bed placed in lowest position. Brakes of bed on. Patient 3 Clinical Report - Nurses [facility] Emergency Department [address] [place] [address] Phone #: ext- [phone] 12/04/2020 11:35 Patient: MARGARET MOONEY Sex: F : 2000 Age: 20y ready for evaluation- ED physician and PA notified. --11:42 12/04/20 Navya Escalera R.N.DISPOSITION / DISCHARGE Departure time: 13:26 12/04/2020. --13:26 12/04/20 Joanna Hung RN Condition at departure: stable. No learning barriers present. Discharge instructions provided and reviewed with the patient. Reviewed referral to a primary care physician. Patient verbalized understanding. Written instructions provided in Congolese. The patient was discharged by the physician. She was discharged home and unaccompanied at time of discharge. She left ambulatory and via private vehicle. Patient driving. --13:27 12/04/20 Joanna Hung RN 13:20 12/04/20. BP: 153/88. MAP: 109. HR: 95. RR: 16. O2 saturation: 99%. Temp: deferred. Pain level now: 0/10. --13:29 12/04/20 Joanna Hung RN.Locked/Released at 12/04/2020 13:30 by Joanna Hung RN Name Value Range Interpretation Code Description Data Vangie rce(s) Supporting Document(s) ID Date Data Source [id number] 12/04/2020 11:46:00 AM EST [facility] 1 Clinical Report - Physicians/Mid Levels [facility] Emergency Department [address] [place] [address] Phone #: ext- [phone] 12/04/2020 11:35 Patient: MARGARET MOONEY Sex: F : 2000 Age: 20y Time Seen: 11:38 12/04/2020; initial patient contact. Arrived- By private vehicle. Historian- patient. Disposition decision: 13:19 12/04/2020.HISTORY OF PRESENT ILLNESS Chief Complaint: PARESTHESIA. B/L lower anterior legs. This started 5 days ago and is still present. It has been intermittent. The patient has had new onset of numbness of the right leg (mild) and left leg (mild). She has had new onset of tingling of the right leg (mild) and left leg (mild). No impaired speech or swallowing, visual disturbance or recent fall. No difficulty walking. At its maximum deficit described as mild. When seen in the E.D., it was almost gone. No dizziness, altered mental status, seizure or blackouts. Usually is alert and oriented X3 and has normal mobility. (pt went skiing the other day and Sx's started then but no injury; pt believes it's the Zoloft medication which she started 4 weeks ago; otw ROS negative). Similar symptoms previously. None. Recent medical care: Not recently seen/assessed.REVIEW OF SYSTEMSNo fever, headache, head injury, chest pain or difficulty breathing. No cough, sputum production, sorethroat, abdominal pain or nausea. No diarrhea, black stools, difficulty with urination, skin rash or enlargedlymph nodes. No joint pain, vomiting, bloody stools or back pain. All other systems reviewed and arenegative.PAST HISTORYSee nurses notes. Problems: Anxiety Reaction. Asthma. Additional Surgeries: no known surgeries. Medications: ZyrTEC Allergy Childrens Oral. Singulair Oral. Albuterol Sulfate HFA Inhalation. 2 Clinical Report - Physicians/Mid Levels [facility] Emergency Department [address] [place] [address] Phone #: ext- [phone] 12/04/2020 11:35 -- Patient: MARGARET MOONEY Sex: F : 2000 Age: 20y Zoloft Oral 50 mg, daily. Allergies: No Known Drug Allergy.SOCIAL HISTORYNever smoker. Occasional alcohol use. No drug use.ADDITIONAL NOTESThe nursing notes h ave been reviewed with agreement regarding the chief complaint, HPI, ROS, PMH andpatient medications and allergies.PHYSICAL EXAMVital Signs: 12/04/2020 11:36 BP: 142/94. MAP: 110. HR: 100. RR: 16. O2 saturation: 99% on room air.Temp: 99.1 F. Pain level now: 05/06. Have been reviewed. Oxygen saturation normal.Appearance: Alert. No acute distress.Head: Head atraumatic.Eyes: Pupils equal, round and reactive to light.ENT: Normal ENT inspection. Airway intact. Pharynx normal.Neck: Normal inspection. Neck supple.CVS: Normal heart rate and rhythm. Heart sounds normal. Pulses normal.Respiratory: No respiratory distress. Painless inspiration. Breath sounds normal.Abdomen: Soft and nontender. No organomegaly.Back: Normal inspection.Skin: Skin warm and dry. Normal skin color. No rash. Normal skin turgor.Extremities: Extremities exhibit normal ROM. No lower extremity edema.Neuro: Alert. Oriented X 3. Mood/affect normal. Speech normal. Cranial nerves normal (as tested).No cerebellar findings. No motor deficit. No weakness. No sensory deficit. No sensory deficit.Reflexes normal. Reflex exam: DTRs otherwise normal. No pronator drift.LABS, X-RAYS, AND EKGLS- Spine X-rays: No fracture. No bony lesion. Views: AP and lateral. Technique: good. The X-rayswere interpreted by the radiologist. Interpretation time: 12:34 12/04/2020.Laboratory Tests: Laboratory tests have been ordered, with results reviewed and considered in themedical decision making process. Spine Lumbar AP And LAT: (KARLOS: 12/04/2020 11:57) ( MsgRcvd 12/04/2020 12:35) In Progress SPINE LS AP Reason(s): Lower Extremity Tingling TRANSPORTATION: IV? O2? Oxygen?(No) Room: ED CBC w Diff: (KARLOS: 12/04/2020 12:04) ( MsgRcvd 12/04/2020 12:25) Final results Test Result Flag Units (Reference) CBC W/AUTOMATED DIFF COMPLETE BLOOD COUNT WBC 9.4 10/uL (4.2 - 11.0) 3 Clinical Report - Physicians/Mid Levels [facility] Emergency Department [address] [place] [address] Phone #: ext- [phone] 12/04/2020 11:35 Patient: MARGARET MOONEY Sex: F : 2000 Age: 20y RBC 4.31 10/uL (4.20 - 5.40) HEMOGLOBIN 13.9 g/dL (12.0 - 16.0) HEMATOCRIT 40.3 % (37.0 - 47.0) MCV 93.5 fL (81.0 - 101) MCH 32.3 pg (27.0 - 34.0) MCHC 34.5 g/dL (31.0 - 36.0) RDW 11.0 L % (11.5 - 14.5) PLATELETS 297 10/uL (150 - 450) MPV 10.1 fL (7.4 - 10.4) NEUT 61.7 % (37.0 - 80.0) LYMPH 21.1 L % (25.0 - 40.0) MONO 9.4 H % (3.0 - 8.0) EOS 6.4 % (0.0 - 7.0) BASO 0.7 % (0.0 - 2.5) %IG 0.7 H % (0.0 - 0.0) %NRBC 0.0 % (0.0 - 0.0) #NEUT 5.79 10/uL (2.00 - 6.90) #LYMPH 1.98 10/uL (0.60 - 3.40) #MONO 0.88 10/uL (0.00 - 0.90) #EOS 0.60 10/uL (0.00 - 0.70) #BASO 0.07 10/uL (0.00 - 0.20) #IG 0.07 10/uL (0.00 - 0.10) #NRBC 0.00 10/uL (0.00 - 0.00) MANUAL DIFF NOT INDICATED RBC MORPH NOT INDICATEDCMP: (KARLOS: 12/04/2020 12:04) ( MsgRcvd 12/04/2020 12:58) Final results Test Result Flag Units (Reference) COMPREHENSIVE METABOLIC PANEL COMPREHENSIVE METABOLIC PANEL SODIUM 139 mEq/L (134 - 153) POTASSIUM 3.8 mEq/L (3.6 - 5.0) CHLORIDE 104 mEq/L (98 - 107) CO2 25 MEQ/L (22 - 30) GLUCOSE 93 MG/DL (70 - 99) BUN 14 MG/DL (7 - 21) CREATININE 0.8 MG/DL (0.7 - 1.5) BUN/CREAT 18 (8 - 27) TOTAL PROTEIN 7.6 G/DL (6.3 - 8.2) ALBUMIN 4.3 G/DL (3.9 - 5.0) GLOBULIN 3.3 H GM/DL (2.4 - 3.2) A/G RATIO 1.3 (0.8 - 2.0) CALCIUM 9.3 MG/DL (8.4 - 10.2) TOTAL BILI <0.7 MG/DL (0.2 - 1.3) ALKALINE PHOS 68 U/L (38 - 126) SGOT/AST 20 U/L (5 - 40) SGPT/ALT 19 U/L (7 - 56) ANION GAP 10.0 mmol/L (8.0 - 16.0) AGE 20 yrs NON-AA GFR >60 mL/min AFR AMER GFR >60 mL/min Male GFR Interprentation 20-49 yrs >60 mL/min Hwvaql22-40 yrs >56 mL/min Normal 60-69 yrs >49 mL/min Normal 70-79yrs>42 mL/min Normal 80 and above >35 mL/min Normal Female GFRInterpretation 20-39 yrs >60 mL/min Normal 40-49 yrs >58 mL/minNormal 50-59 yrs >51 mL/min Normal 60-69 yrs >45 mL/min Bmuzcc21-33 yrs >39 mL/min Normal 80 and above >32 mL/min NormalTSH: (KARLOS: 12/04/2020 12:04) ( MsgRcvd 12/04/2020 12:58) Final results 4 Clinical Report - Physicians/Mid Levels [facility] Emergency Department [address] [place] [address] Phone #: ext- [phone] 12/04/2020 11:35 Patient: MARGARET MOONEY MRN: [id number] Sex: F : 2000 Age: 20y Test Result Flag Units (Reference) TSH 1.48 uIU/mL (0.47 - 5.01) Beta-HCG, Qual Serum: (KARLOS: 12/04/2020 12:04) ( MsgRcvd 12/04/2020 12:46) Final results Test Result Flag Units (Reference) HCG SERUM QUAL NEGATIVE (NORMAL: NEGAT HCG SERUM QL REENTER NEGATIVE (NORMAL: NEGAT { KIT LOT # [id number] ){ KIT EXP DATE 04/26/22 ){ PROCEDURAL CONTROL VALID ).PROGRESS AND PROCEDURESCourse of Care: 13:17 12/04/20. workup all in and nml, incl. TSH, LS spine x-ray nml; pt has NS tinglinglower legs w/o any findings on exam or pain; advised to stop the Zoloft, since new medication, and f/u wPMP in next week; advised to return to ER if Sx's worsen or neuro Sx's; pt understands and agrees winstructions. Patient counseled in person regarding the patient's stable condition, test results, diagnosis and need for follow-up. Patient agrees with plan of care. Disposition: Condition: good and stable. Discharge decision based on the following: patient's condition is stable; patient's condition is improved; patient is ambulatory; patient is active; patient drinking fluids; patient eating; patient's pain is controlled; patient's exam is improved; no abnormal test results; improving condition on multiple repeat evaluations; social support is good; transportation is available; follow-up is available; clinical impression is consistent with outpatient treatment.CLINICAL IMPRESSION Normal exam upon presentation, while in the ED and at discharge. Paresthesia (lower legs, intermittent). Rule out Zoloft side effect.INSTRUCTIONS Follow a low salt diet and low cholesterol diet. Do not smoke. No alcohol. (RETURN TO ER IF WORSENING OF SYMPTOMS OR ANY NEW NEUROLOGICAL SYMPTOM; STOP THE ZOLOFT AND FOLLOW UP WITH YOUR FAMILY MD IN NEXT WEEK). Warnings: Further evaluation is necessary. It is very important to follow up with a healthcare provider. GENERAL WARNINGS: Return or contact your physician immediately if your condition worsens or 5 Clinical Report - Physicians/Mid Levels [facility] [place] [address] Phone #: ext- [phone] 12/04/2020 11:35 Patient: MARGARET MOONEY Sex: F : 2000 Age: 20y changes unexpectedly, if not improving as expected, or if other problems arise. Specifically return if pain, vomiting, bleeding, breathing difficulty or fever greater than 102 degrees F and not controlled by acetaminophen or ibuprofen. Your Current Medications: Your current home medications have been reviewed. STOP TAKING THE FOLLOWING MEDICATIONS: Zoloft Oral : 50 mg daily. CONTINUE TAKING THE FOLLOWING MEDICATIONS: Albuterol Sulfate HFA Inhalation. Singulair Oral. ZyrTEC Allergy Childrens Oral. Follow-up: Return to the emergency department as needed. Follow up with your healthcare provider in three days even if well. Call for an appointment. Reason for referral: evaluation and treatment. Summary of care provided to patient via paper. Understanding of the discharge instructions verbalized by patient. Expected course of illness, discharge instructions, activity level, diet, follow-up appointment and risks and benefits of treatment reviewed with patient and understanding verbalized. Agrees to plan of care.(Electronically signed by Jordan House M.D. 12/04/2020 14:19) Name Value Range Interpretation Code Description Data Vangie rce(s) Supporting Document(s) ID Date Data Source [id number] 12/06/2020 07:21:00 AM [facility] Name Value Range Interpretation Code Description Data Vangie rce(s) Supporting Document(s) Borrelia burgdorferi IgG+IgM Ab [Units/volume] in Serum <0.91 ISR 0. 00-0.90 [facility] Negative <0.91 Equivocal 0.91 - 1.09 Positive >1.09 Borrelia burgdorferi IgM Ab [Units/volume] in Serum by Immun oassay <0.80 index 0.00-0.79 [facility] Negative <0.80 Equivocal 0.80 - 1.19 Positive >1.19 IgM levels may peak at 3-6 weeks post infection, then gradually decline. ID Date Data Source [id number] 12/04/2020 12:58:00 PM [facility] Name Value Range Interpretation Code Description Data Vangie rce(s) Supporting Document(s) Thyrotropin [Units/volume] in Serum or Plasma by Detec tion limit <= 0.05 mIU/L 1.48 uIU/mL 0.47 - 5.01 [facility] ID Date Data Source [id number] 12/04/2020 12:58:00 PM [facility] Name Value Range Interpretation Code Description Data Vangie rce(s) Supporting Document(s) COMPREHENSIVE METABOLIC PANEL [facility] COMPREHENSIVE METABOLIC PANEL Sodium [Moles/volume] in Serum or Plasma 139 mEq/L 134 - 153 [facility] Potassium [Moles/volume] in Serum or Plasma 3.8 mEq/L 3.6 - 5.0 [facility] Chloride [Moles/volume] in Serum or Plasma 104 mEq/L 98 - 107 [facility] Carbon dioxide, total [Moles/volume] in Serum or Plasma 25 MEQ/L 22 - 30 [facility] Glucose [Mass/volume] in Serum or Plasma 93 MG/DL 70 - 99 [facility] BUN 14 MG/DL 7 - 21 [facility] al Creatinine [Mass/volume] in Serum or Plasma 0.8 MG/DL 0.7 - 1.5 [facility] BUN/CREAT 18 8 - 27 [facility] al Protein [Mass/volume] in Serum or Plasma 7.6 G/DL 6.3 - 8.2 [facility] Albumin [Mass/volume] in Serum or Plasma 4.3 G/DL 3.9 - 5.0 [facility] Globulin [Mass/volume] in Serum by calculation 3.3 GM/DL 2.4 - 3.2 H [facility] A/G RATIO 1.3 0.8 - 2.0 [facility] Calcium [Mass/volume] in Serum or Plasma 9.3 MG/DL 8.4 - 10.2 [facility] Bilirubin.total [Mass/volume] in Serum or Plasma <0.7 MG/DL 0.2 - 1.3 [facility] Alkaline phosphatase [Enzymatic activity/volume] in Serum or Plasma 68 U/L 38 - 126 [facility] Aspartate aminotransferase [Enzymatic activity/volume] in Serum or Plasma 20 U/L 5 - 40 [facility] Alanine aminotransferase [Enzymatic activity/volume] in Seru m or Plasma 19 U/L 7 - 56 [facility] Anion gap 3 in Serum or Plasma 10.0 mmol/L 8.0 - 16.0 [facility] AGE 20 yrs [facility] al NON-AA GFR >60 mL/min [facility] ital AFR AMER GFR >60 mL/min [facility] Male GFR In terprentation 20-49 yrs >60 mL/min Normal 50-59 yrs >56 mL/min Normal 60-69 yrs >49 mL/min Normal 70-79yrs >42 mL/min Normal 80 and above >35 mL/min Normal Female GFR Interpretation 20-39 yrs >60 mL/min Normal 40-49 yrs >58 mL/min Normal 50-59 yrs >51 mL/min Normal 60-69 yrs >45 mL/min Normal 70-79 yrs >39 mL/min Normal 80 and above >32 mL/min Normal ID Date Data Source [id number] 12/04/2020 12:45:00 PM EST [facility] Name Value Range Interpretation Code Description Data Vangie rce(s) Supporting Document(s) HCG SERUM QUAL NEGATIVE NORMAL: NEGATIVE [facility] HCG SERUM QL REENTER NEGATIVE NORMAL: NEGATIVE [facility] { KIT LOT # [id number] ){ KIT EXP DATE 04/26/22 ){ PROCEDURAL CONTROL VALID ) ID Date Data Source [id number] 12/04/2020 12:24:00 PM EST [facility] Name Value Range Interpretation Code Description Data Vangie rce(s) Supporting Document(s) CBC W/AUTOMATED DIFF [facility] COMPLETE BLOOD COUNT Leukocytes [#/volume] in Blood by Automated count 9.4 10^3/uL 4.2 - 1 1.0 [facility] Erythrocytes [#/volume] in Blood by Automated count 4.31 10^6/uL 4. 20 - 5.40 [facility] Hemoglobin [Mass/volume] in Blood 13.9 g/dL 12.0 - 16.0 [facility] Hematocrit [Volume Fraction] of Blood by Automated count 40.3 % 3 7.0 - 47.0 [facility] Erythrocyte mean corpuscular volume [Entitic volume] by Auto mated count 93.5 fL 81.0 - 101 [facility] Erythrocyte mean corpuscular hemoglobin [Entitic mass] by Automated count 32.3 pg 27.0 - 34.0 [facility] Erythrocyte mean corpuscular hemoglobin concentration [Mass/volume] by Automated count 34.5 g/dL 31.0 - 36.0 [facility] Erythrocyte distribution width [Ratio] by Automated count 11.0 % 11.5 - 14.5 L [facility] Platelets [#/volume] in Blood by Automated count 297 10^3/uL 150 - 45 0 [facility] Platelet mean volume [Entitic volume] in Blood by Automated count 10.1 fL 7.4 - 10.4 [facility] Neutrophils/100 leukocytes in Blood by Automated count 61.7 % 37. 0 - 80.0 [facility] Lymphocytes/100 leukocytes in Blood by Manual count 21.1 % 25.0 - 40.0 L [facility] Monocytes/100 leukocytes in Blood by Automated count 9.4 % 3.0 - 8.0 H [facility] Eosinophils/100 leukocytes in Blood by Automated count 6.4 % 0.0 - 7.0 [facility] Basophils/100 leukocytes in Blood by Automated count 0.7 % 0.0 - 2.5 [facility] %IG 0.7 % 0.0 - 0.0 [facility] %NRBC 0.0 % 0.0 - 0.0 [facility] al Neutrophils [#/volume] in Blood by Automated count 5.79 10^3/uL 2.00 - 6.90 [facility] Lymphocytes [#/volume] in Blood by Automated count 1.98 10^3/uL 0.60 - 3.40 [facility] Monocytes [#/volume] in Blood by Automated count 0.88 10^3/uL 0.00 - 0.90 [facility] Eosinophils [#/volume] in Blood by Automated count 0.60 10^3/uL 0.00 - 0.70 [facility] Basophils [#/volume] in Blood by Automated count 0.07 10^3/uL 0.00 - 0.20 [facility] #IG 0.07 10^3/uL 0.00 - 0.10 [facility] #NRBC 0.00 10^3/uL 0.00 - 0.00 [facility] MANUAL DIFF NOT INDICATED [facility] RBC MORPH NOT INDICATED [facility] Procedure Social History No Information
[2021-08-17 07:35] VITALS: BP 131/84
== END 2021-08-17 07:53 | disposition home or self-care (01) ==
LOC: M ED 04:50
DX: J45.901 Unspecified asthma with (acute) exacerbation (principal); Z79.51 Long term (current) use of inhaled steroids; Z79.899 Other long term (current) drug therapy

== ENCOUNTER 2022-07-11 04:25 | Emergency (ER) | payer OTHER ==
[~2022-07-11] VITALS: Ht 162.6 cm; Wt 77.3 kg
[~2022-07-11 04:25] MED LIST: ALBU8.5H INH; CETI-36 PO; SING10TA32 PO; ZOLO100T PO
[2022-07-11] MEDS ORDERED: ALBUTEROL SULFATE 2.5 MG/0.5 ML INH NEB SOLN NEB ONE (04:45)
[2022-07-11] MEDS ORDERED: methylPREDNISolone 125MG 2ML VIAL IV ONE (04:50)
[2022-07-11] MEDS ORDERED: IPRATROPIUM 0.5MG/ALBUTEROL 2.5MG INH SOL UD 3ML (DUONEB) NEB ONE ×2 (04:50→06:15)
[2022-07-11 04:52] LABS: BASO # 0.1 10^3/uL (0.0-0.2); BASO % 0.8 % (0.0-1.0); EOS # 1.2 10^3/uL (0.0-0.5); EOS % 9.3 % (0.0-3.0); HEMATOCRIT 48.9 % (36.0-47.0); HEMOGLOBIN 16.4 g/dl (12.0-15.5); LYMPH % 22.6 % (24.0-44.0); MEAN CORPUSCULAR HEMOGLOBIN 32.7 pg (27.0-33.0); MEAN CORPUSCULAR HGB CONC 33.5 g/dl (32.0-36.5); MEAN CORPUSCULAR VOLUME 97.4 fl (80.0-96.0); MONO # 0.9 10^3/uL (0.0-0.8); MONO % 7.2 % (2.0-8.0); NEUTROPHILS # 7.8 10^3/uL (1.5-8.5); NEUTROPHILS % 59.9 % (36.0-66.0); PLATELET COUNT, AUTOMATED 388 10^3/uL (150-450); RED BLOOD COUNT 5.02 10^6/uL (4.00-5.40); WHITE BLOOD COUNT 13.1 10^3/uL (4.0-10.0)
[2022-07-11] MEDS ORDERED: VENTAER INH (05:23)
[2022-07-11] MEDS ORDERED: SYMB80INH INH (05:23)
[2022-07-11] MEDS ORDERED: ALBU2.5V10 NEB (05:23)
[2022-07-11 05:39] LABS: HCG, SERUM QUALITATIVE NEGATIVE (NEGATIVE)
[2022-07-11 05:53] LABS: ALBUMIN 3.9 GM/DL (3.2-5.2); ALT/SGPT 28 U/L (12-78); BILIRUBIN,DIRECT < 0.1 MG/DL (0.0-0.2); BILIRUBIN,TOTAL 0.3 MG/DL (0.2-1.0); BLOOD UREA NITROGEN 14 MG/DL (7-18); CARBON DIOXIDE LEVEL 28 MEQ/L (21-32); CHLORIDE LEVEL 105 MEQ/L (98-107); CREATININE FOR GFR 1.02 MG/DL (0.55-1.30); GLOMERULAR FILTRATION RATE > 60.0 (>60); GLUCOSE, FASTING 147 MG/DL (70-100); POTASSIUM SERUM 4.1 MEQ/L (3.5-5.1); SODIUM LEVEL 140 MEQ/L (136-145); TOTAL PROTEIN 7.8 GM/DL (6.4-8.2)
[2022-07-11] MEDS ORDERED: ALBUTEROL 90 MCG/ACT 8GM HFA INHALER INH ONE (06:15)
[2022-07-11] MEDS ORDERED: PRED20TA PO (06:27)
[2022-07-11 06:48] VITALS: BP 128/72
== END 2022-07-11 06:50 | disposition home or self-care (01) ==
LOC: M ED 04:25
DX: J45.901 Unspecified asthma with (acute) exacerbation (principal); F32.A Depression, unspecified; Z79.51 Long term (current) use of inhaled steroids; Z79.899 Other long term (current) drug therapy
CPT/HCPCS: 71045; 80048; 80076; 84703; 85025; 87486; 87581; 87633; 87798; 94640; 94760; 96374; 99284; J2930

== ENCOUNTER 2022-09-22 19:20 | Emergency (ER) | payer OTHER ==
[~2022-09-22] VITALS: Ht 162.6 cm; Wt 81.8 kg
[~2022-09-22 19:20] MED LIST changes: +ALBU2.5V10 NEB; +PRED20TA PO; +SYMB80INH INH; +VENTAER INH
[2022-09-22 23:53] VITALS: BP 155/88
== END 2022-09-22 23:59 | disposition left against medical advice (07) ==
LOC: M ED 19:20
DX: Z53.21 Procedure and treatment not carried out due to patient leaving prior to being seen by health care provider (principal)